=== PATIENT | male | born 1995 | race Two or more races ===

== ENCOUNTER 2017-09-12 08:14 | Emergency (ER) | payer BC, OTHER ==
[~2017-09-12] VITALS: Ht 170.2 cm; Wt 86.2 kg
[2017-09-12 08:17] VITALS: BP 135/75
== END 2017-09-12 08:46 | disposition home or self-care (01) ==
LOC: ER 08:15
DX: S89.92XA Unspecified injury of left lower leg, initial encounter (principal); X58.XXXA Exposure to other specified factors, initial encounter; Y93.67 Activity, basketball; Y92.89 Other specified places as the place of occurrence of the external cause; Y99.8 Other external cause status
CPT/HCPCS: 99283; A4606; Z7610

== ENCOUNTER 2018-09-19 11:25 | Emergency (ER) | payer BC, MEDICAID ==
[~2018-09-19] VITALS: Ht 170.2 cm; Wt 90.7 kg
[2018-09-19 11:25] VITALS: BP 123/76
== END 2018-09-19 12:42 | disposition home or self-care (01) ==
LOC: ER 11:29
DX: S69.82XA Other specified injuries of left wrist, hand and finger(s), initial encounter (principal); X58.XXXA Exposure to other specified factors, initial encounter; Y93.67 Activity, basketball; Y92.89 Other specified places as the place of occurrence of the external cause; Y99.8 Other external cause status
CPT/HCPCS: 73140-TC